=== PATIENT | female | born 1965 | race African-American/Black ===

== ENCOUNTER 2019-01-06 21:23 | Emergency (ER) | payer BC ==
[2019-01-06 21:31] VITALS: BMI 36.6
[2019-01-06] MEDS ORDERED: SODIUM CHLORIDE 2,994 ML IV ONE (21:54)
[2019-01-06] MEDS ORDERED: ACETAMINOPHEN 1000 MG/100 ML VIAL (NON FORMULARY) IVPB ONE (22:18)
--- NOTE | 2019-01-06 22:18 | PDOC ---
History of Present Illness - General Chief Complaint: Back Pain Stated Complaint: FEVER/DIZZINESS/BACK PAIN Time Seen by Provider: 01/06/19 21:49 History Source: Patient - History of Present Illness Initial Comments: 01/06/19 21:50 53 year old female with dizziness, sob and fever seen at [facility] started on tamiflu 2 days ago. Flu test negative at [facility].Patient denies shortness of breath, URI symptoms, cough, chest congestion. patient reports that her symptoms are not better. Patient reports dizziness b/l flank pain, and fever denies nausea/ vomiting, abdominal pain PMHX: sciatica, herniated disc, frequent UTIs. last UTI 2 months ago 01/07/19 01:32 Past History - Past Medical History Allergies/Adverse Reactions: Allergies Allergy/AdvReac Type Severity Reaction Status Date / Time amoxicillin Allergy Mild Rash Verified 06/17/14 21:53 codeine Allergy Hives Verified 06/17/14 21:56 iv dye Allergy Elevated Uncoded 06/17/14 21:55 Blood Pressure Home Medications: Ambulatory Orders Tolterodine Tartrate [Detrol LA] 0 mg PO DAILY 06/17/14 Baclofen 10 mg PO Q12HR PRN #10 tablet 06/21/14 Pantoprazole Sodium [Protonix] 40 mg PO DAILY #30 tablet. 06/21/14 levoFLOXacin [Levaquin -] 500 mg PO DAILY #4 tablet 06/21/14 Levofloxacin [Levaquin] 500 mg PO DAILY #7 tablet 01/07/19 Saccharomyces Boulardii [Florastor] 250 mg PO BID #30 capsule 01/07/19 - Reproductive History (#): 1 - Immunization History Immunization Up to Date: Yes - Psycho Social/Smoking Cessation Hx Smoking History: Never smoked Number of Cigarettes Smoked Daily: 0 Cigars Per Day: 0 Hx Alcohol Use: No Drug/Substance Use Hx: No Substance Use Type: None Hx Substance Use Treatment: No Review of Systems - Review of Systems Able to Perform ROS?: Yes Is the patient limited Cambodian proficient: No Constitutional: Yes: Fever Respiratory: No: Symptoms reported, See HPI, Cough, Orthopnea, Shortness of Breath, SOB with Exertion, SOB at Rest, Stridor, Wheezing, Productive cough, Hemoptysis, Other : Yes: Flank Pain. No: Symptoms Reported, See HPI, Burning, Dysuria, Discharge, Frequency, Hematuria, Incontinence, Pain, Urgency, Testicular Mass, Testicular Swelling, Lesions, Testicular Pain, Other Neurological: Yes: Dizziness. No: Symptoms reported, See HPI, Headache, Numbness, Paresthesia, Pre-Existing Deficit, Seizure, Tingling, Tremors, Weakness, Unsteady Gait, Ataxia, Other Psychiatric: No: Anxiety, Depression, Frequent Crying, Stressors, Sleep Pattern Change, Emotional Problems, Mood Swings, Change in Appetite, Other *Physical Exam - Vital Signs Last Vital Signs Temp Pulse Resp BP Pulse Ox 101.2 F H 117 H 20 123/78 97 01/06/19 21:26 01/06/19 21:26 01/06/19 21:26 01/06/19 21:26 01/06/19 21:26 - Physical Exam General Appearance: Yes: Appropriately Dressed HEENT: positive: Normal ENT Inspection Respiratory/Chest: positive: Lungs Clear, Normal Breath Sounds Cardiovascular: positive: Regular Rhythm, Regular Rate Gastrointestinal/Abdominal: positive: Normal Bowel Sounds, Soft. negative: Tender Musculoskeletal: positive: CVA Tenderness (mild b/l) Extremity: positive: Normal Capillary Refill, Normal Inspection, Normal Range of Motion Integumentary: positive: Normal Color Neurologic: positive: Fully Oriented, Alert ED Treatment Course - LABORATORY CBC & Chemistry Diagram: 01/06/19 23:00 01/06/19 23:00 Medical Decision Making - Medical Decision Making 01/06/19 23:01 A: fever sepsis work up P; Labs Blood culture Ua Urine culture lactic acid IV fluids 01/07/19 01: Labs reviewed. Patient offered admission for inpatient management of pyelonephritis/UTI. Patient refused admission patient reports that she would follow have close follow-up with her PCP. Strict return precautions were reviewed with patient. Patient verbalized understanding. Discharge - Discharge Information Problems reviewed: Yes Clinical Impression/Diagnosis: Fever and chills, Pyelonephritis Disposition: HOME - Additional Discharge Information Prescriptions: Levofloxacin [Levaquin] 500 mg PO DAILY #7 tablet Saccharomyces Boulardii [Florastor] 250 mg PO BID #30 capsule - Follow up/Referral Referrals: Reji Martins MD [Primary Care Provider] - Call tomorrow - Patient Discharge Instructions Patient Printed Discharge Instructions: Kidney Infection Additional Instructions: Drink plenty of fluids. Take Levaquin as prescribed. Take Florastor or probiotics 2 hours before or 2 hours after antibiotic dose. It is important that you follow-up with your doctor closely. Return emergency to the immediately to the emergency room for any worsening symptoms. - Post Discharge Activity Work/Back to School Note: Back to Work
[2019-01-06 23:33] LABS: BASO % 0.4 % (0-2.0); EOS % 0.2 % (0-4.5); HEMATOCRIT 37.2 % (32.4-45.2); HEMOGLOBIN 12.4 GM/dL (10.7-15.3); LYMPH % 9.4 % (8-40); MCH 27.7 pg (25.7-33.7); MCHC 33.4 g/dl (32.0-36.0); MEAN CELL VOLUME 82.9 fl (80-96); MEAN PLT VOLUME 9.6 fl (7.5-11.1); MONO % 7.9 % (3.8-10.2); NEUT % 82.1 % (42.8-82.8); PLATELET COUNT 233 K/MM3 (134-434); RBC 4.48 M/mm3 (3.60-5.2); RDW 17.1 % (11.6-15.6); WHITE BLOOD COUNT 15.7 K/mm3 (4.0-10.0)
[2019-01-06 23:35] LABS: VENOUS PC02 37.7 mmHg (38-52); VENOUS PH 7.42 (7.31-7.41); VENOUS PO2 56.6 mmHg (28-48)
[2019-01-06] MEDS ORDERED: ACETAMINOPHEN INJECTION 100 ML IVPB ONE (23:48)
[2019-01-07 00:01] LABS: ALBUMIN 3.1 g/dl (3.4-5.0); ALK PHOS 74 U/L (45-117); ANION GAP 8 MMOL/L (8-16); BILIRUBIN,TOTAL 1.4 mg/dL (0.2-1); BLOOD UREA NITROGEN 13.8 mg/dL (7-18); CHLORIDE 103 mmol/L (98-107); CO2 26 mmol/L (21-32); CREATININE 0.9 mg/dL (0.55-1.3); GLUCOSE,RANDOM 91 mg/dL (74-106); POTASSIUM 3.8 mmol/L (3.5-5.1); SGOT/AST 29 U/L (15-37); SGPT/ALT 35 U/L (13-61); SODIUM 136 mmol/L (136-145); TOT PROT 7.1 g/dl (6.4-8.2)
[2019-01-07 00:43] LABS: EPI CELLS 12.9 /HPF (0-5/HPF); HYALINE CASTS 55 /lpf (0-8); URINE APPEARANCE CLOUDY; URINE BACTERIA 355.8 /hpf (NEGATIVE); URINE BILIRUBIN 1+ (NEGATIVE); URINE COLOR DK YELLOW; URINE GLUCOSE (UA) NEGATIVE (NEGATIVE); URINE KETONE 2+ (NEGATIVE); URINE LEUK ESTERASE TRACE (NEGATIVE); URINE NITRITE NEGATIVE (NEGATIVE); URINE PROTEIN 1+ (NEGATIVE); URINE RBC 2 /hpf (0-4); URINE WBC 9 /hpf (0-5)
[2019-01-07] MEDS ORDERED: SODIUM CHLORIDE 0.9% 500 ML INFUS.BAG IV ONE (01:29)
[2019-01-07 01:54] VITALS: TEMP 98.5
[2019-01-07 04:35] VITALS: BP 119/74; PULSE 91
--- NOTE | 2019-01-07 14:13 | EKG ---
Test Reason : Blood Pressure : / mmHG Vent. Rate : 104 BPM Atrial Rate : 104 BPM P-R Int : 124 ms QRS Dur : 096 ms QT Int : 334 ms P-R-T Axes : 036 014 014 degrees QTc Int : 439 ms SINUS TACHYCARDIA NONSPECIFIC ST AND T WAVE ABNORMALITY ABNORMAL ECG Confirmed by CATRINA HINES MD ([id number]) on 01/07/2019 2:12:55 PM Referred By: Confirmed By:CATRINA HINES MD
== END 2019-01-07 04:30 | disposition home or self-care (01) ==
LOC: JER 21:23
PROC: 3E033NZ Introduction of Analgesics, Hypnotics, Sedatives into Peripheral Vein, Percutaneous Approach (ICD-10-PCS; principal; 2019-01-06)
PROC: 3E03329 Introduction of Other Anti-infective into Peripheral Vein, Percutaneous Approach (ICD-10-PCS; 2019-01-06)
PROC: 3E0337Z Introduction of Electrolytic and Water Balance Substance into Peripheral Vein, Percutaneous Approach (ICD-10-PCS; 2019-01-06)
DX: N12 Tubulo-interstitial nephritis, not specified as acute or chronic (principal); R50.9 Fever, unspecified; Z88.8 Allergy status to other drugs, medicaments and biological substances; Z88.6 Allergy status to analgesic agent; Z91.041 Radiographic dye allergy status
CPT/HCPCS: 36415; 71045-TC-FY; 80053; 81003; 82803; 83605; 84484; 85025; 87040; 87086; 93005; 93010; 99283-25; J0131; J7030

== ENCOUNTER 2021-07-07 06:03 | Emergency (ER) | payer BC ==
[2021-07-07 06:36] VITALS: TEMP 97.8; BMI 39.9
[2021-07-07] MEDS ORDERED: LACTATED RINGERS SOLUTION 1000 ML INFUS.BAG IV ONE (07:27)
[2021-07-07 08:51] VITALS: BP 124/84; PULSE 97
[2021-07-07 09:02] LABS: BASO % 0.4 % (0-2.0); EOS % 0.3 % (0-4.5); HEMATOCRIT 41.2 % (32.4-45.2); HEMOGLOBIN 13.6 GM/dL (10.7-15.3); LYMPH % 11.3 % (8-40); MCH 27.6 pg (25.7-33.7); MCHC 32.9 g/dl (32.0-36.0); MEAN PLT VOLUME 9.9 fl (7.5-11.1); MONO % 5.5 % (3.8-10.2); NEUT % 82.5 % (42.8-82.8); PLATELET COUNT 214 10^3/uL (134-434); RBC 4.91 M/mm3 (3.60-5.2); RDW 17.2 % (11.6-15.6); WHITE BLOOD COUNT 8.6 K/mm3 (4.0-10.0)
[2021-07-07 09:07] LABS: PH,URINE 6.5 (5.0-8.0); URINE APPEARANCE CLEAR; URINE BILIRUBIN NEGATIVE (NEGATIVE); URINE COLOR YELLOW; URINE GLUCOSE (UA) NEGATIVE (NEGATIVE); URINE KETONE NEGATIVE (NEGATIVE); URINE LEUK ESTERASE NEGATIVE (NEGATIVE); URINE NITRITE NEGATIVE (NEGATIVE); URINE PROTEIN NEGATIVE (NEGATIVE)
[2021-07-07 09:11] LABS: CHLORIDE 107 mmol/L (98-107); SODIUM 141 mmol/L (136-145)
[2021-07-07 09:13] LABS: CALCIUM 9.1 mg/dL (8.5-10.1)
[2021-07-07 09:14] LABS: ALBUMIN 3.3 g/dl (3.4-5.0); ANION GAP 5 MMOL/L (8-16); BLOOD UREA NITROGEN 23.8 mg/dL (7-18); CO2 29 mmol/L (21-32); GLUCOSE,RANDOM 103 mg/dL (74-106)
[2021-07-07 09:17] LABS: CREATININE 0.9 mg/dL (0.55-1.3); SGOT/AST 28 U/L (15-37); SGPT/ALT 24 U/L (13-61)
[2021-07-07 09:18] LABS: TOT PROT 6.5 g/dl (6.4-8.2)
[2021-07-07 09:19] LABS: BILIRUBIN,TOTAL 0.5 mg/dL (0.2-1)
[2021-07-07 09:20] LABS: ALK PHOS 65 U/L (45-117)
[2021-07-07 09:21] LABS: PHENCYCLIDINE,URINE NEGATIVE (NEGATIVE)
[2021-07-07 09:22] LABS: OPIATES, URI NEGATIVE (NEGATIVE); URINE BENZODIAZEPINES NEGATIVE (NEGATIVE)
[2021-07-07 09:47] LABS: METHADONE, UR NEGATIVE (NEGATIVE); URINE AMPHETAMINES NEGATIVE (NEGATIVE); URINE BARBITURATES NEGATIVE (NEGATIVE)
[2021-07-10 17:36] LABS: COCAINE, UR NEGATIVE (NEGATIVE)
== END 2021-07-07 13:23 | disposition home or self-care (01) ==
LOC: JER 06:03
DX: F10.129 Alcohol abuse with intoxication, unspecified (principal); F12.90 Cannabis use, unspecified, uncomplicated; R41.82 Altered mental status, unspecified
CPT/HCPCS: 0241U-QW; 36415; 70450-TC; 71045-TC-FY; 80053; 80307; 81003; 84439; 84443; 84484; 85025; 87086; 99285-25

== ENCOUNTER 2021-08-26 08:11 | Emergency (ER) | payer BC ==
[2021-08-26 08:17] VITALS: BP 131/69; PULSE 78; TEMP 98.5; BMI 38.2
[2021-08-26] MEDS ORDERED: TETRACAINE 0.5% HCL 0.6ML DROPPER.BOTTLE OS ONE (09:11)
[2021-08-26] MEDS ORDERED: FLUORESCEIN NA 1 EA STRIP OS ONE (09:11)
[2021-08-26] MEDS ORDERED: FLUORESCEIN NA 1 EA STRIP ONE ×2 (09:17→09:20)
[2021-08-26] MEDS ORDERED: TETRACAINE 0.5% OPHTH SOLN 2 ML BOTTLE ONE ×2 (09:17→09:20)
[2021-08-26] MEDS ORDERED: SULFAMETHOXAZOLE/TRIMETHOPRIM 800MG/160MG D.S. TABLET PO ONE (09:37)
[2021-08-26] MEDS ORDERED: SULFAMETHOXAZOLE/TRIMETHOPRIM 800MG/160MG D.S. TABLET ONE (09:47)
== END 2021-08-26 09:51 | disposition home or self-care (01) ==
LOC: JER 08:11
DX: H02.846 Edema of left eye, unspecified eyelid (principal)
CPT/HCPCS: 99283-25

== ENCOUNTER 2022-04-22 20:59 | Emergency (ER) | payer BC ==
[2022-04-22 21:15] VITALS: BP 139/84; PULSE 91; RESP 20; TEMP 98.2; BMI 38.2
[2022-04-22 22:33] LABS: BASO % 0.8 % (0-2.0); EOS % 3.6 % (0-4.5); HEMATOCRIT 40.9 % (32.4-45.2); HEMOGLOBIN 13.2 GM/dL (10.7-15.3); LYMPH % 35.9 % (8-40); MCH 26.4 pg (25.7-33.7); MCHC 32.3 g/dl (32.0-36.0); MEAN CELL VOLUME 81.7 fl (80-96); MEAN PLT VOLUME 9.3 fl (7.5-11.1); MONO % 6.3 % (3.8-10.2); NEUT % 53.4 % (42.8-82.8); PLATELET COUNT 252 10^3/uL (134-434); RBC 5.01 M/mm3 (3.60-5.2); RDW 16.9 % (11.6-15.6); WHITE BLOOD COUNT 8.2 K/mm3 (4.0-10.0)
[2022-04-22 22:40] LABS: INR 1.06 (0.83-1.09); PROTHROMBIN TIME (PATIENT) 12.3 SEC (9.7-13.0)
[2022-04-22 23:02] LABS: CALCIUM 8.8 mg/dL (8.5-10.1)
[2022-04-22 23:03] LABS: ALBUMIN 3.3 g/dl (3.4-5.0); BLOOD UREA NITROGEN 17.9 mg/dL (7-18)
[2022-04-22 23:06] LABS: CREATININE 0.8 mg/dL (0.55-1.3)
[2022-04-22 23:07] LABS: BILIRUBIN,TOTAL 0.5 mg/dL (0.2-1); TOT PROT 6.7 g/dl (6.4-8.2)
== END 2022-04-22 23:57 | disposition home or self-care (01) ==
LOC: JER 20:59
DX: R22.43 Localized swelling, mass and lump, lower limb, bilateral (principal); M71.22 Synovial cyst of popliteal space [Baker], left knee
CPT/HCPCS: 36415; 71046-TC-FY; 80053; 83880; 84484; 85025; 85610; 86850; 86900; 86901; 93970-TC; 99285-25